=== PATIENT | male | born 1960 | race Asian ===

== ENCOUNTER 2018-03-26 05:20 | Day surgery (SDC) | payer MEDICARE ==
[~2018-03-26] VITALS: Ht 165.1 cm; Wt 67.4 kg
[2018-03-26] MEDS ORDERED: SODIUM CHLORIDE 0.9% 1,000 ML IV SCH (06:02)
[2018-03-26 06:06] VITALS: BP 178/92
[2018-03-26 06:07] VITALS: BP 178/92
[2018-03-26] MEDS ORDERED: CINA30TA2 PO (06:36)
[2018-03-26] MEDS ORDERED: SEVE800T8 PO (06:36)
[2018-03-26] MEDS ORDERED: CALC0.25 PO (06:36)
[2018-03-26] MEDS ORDERED: VITAMIN D PO (06:36)
[2018-03-26] MEDS ORDERED: CHOL100015 PO (06:36)
[2018-03-26] MEDS ORDERED: CARV3.122 PO (06:37)
[2018-03-26] MEDS ORDERED: AMLO-150 PO (06:37)
[2018-03-26 06:43] LABS: INTERNATIONAL NORMALIZED RATIO 0.95 (0.93-1.1); PROTHROMBIN TIME 10.1 Seconds (9.6-11.5)
[2018-03-26] MEDS ORDERED: FENTANYL PF 250 MCG/5ML ONE (06:48)
[2018-03-26] MEDS ORDERED: MIDAZOLAM 1 MG/ML, 2ML ONE (06:48)
[2018-03-26] MEDS ORDERED: PROTAMINE SULFATE 10 MG/ML, 5ML ONE (06:49)
[2018-03-26] MEDS ORDERED: BUPIVACAINE/PF-EPI 0.5% 1:200K ONE (06:49)
[2018-03-26] MEDS ORDERED: HEPARIN 1,000 UNITS/ML, 10ML ONE (06:49)
[2018-03-26] MEDS ORDERED: THROMBIN 5,000 UNIT VIAL TP ONE (06:49)
[2018-03-26] MEDS ORDERED: PROPOFOL 10 MG/ML, 20ML ONE (06:50)
[2018-03-26] MEDS ORDERED: CEFAZOLIN 1,000 MG ONE ×2 (06:51)
[2018-03-26] MEDS ORDERED: SODIUM CHLORIDE 0.9% PF 10ML ONE (06:51)
[2018-03-26] MEDS ORDERED: HYDROmorphone 2 MG/ML, 1ML IVPush PRN (07:30)
[2018-03-26] MEDS ORDERED: ONDANSETRON ODT 8 MG PO PRN (07:30)
[2018-03-26] MEDS ORDERED: PROMETHAZINE 12.5 MG SUPP PR PRN (07:30)
[2018-03-26] MEDS ORDERED: PROMETHAZINE 25 MG SUPP PR PRN (07:30)
[2018-03-26] MEDS ORDERED: OXYcodone 5 MG/5 ML ORAL.SOL UDC PO PRN (07:30)
[2018-03-26] MEDS ORDERED: MEPERIDINE/PF 25MG/0.5ML IVPush PRN (07:30)
[2018-03-26] MEDS ORDERED: ONDANSETRON 2MG/ML, 2ML IV PRN (07:30)
[2018-03-26] MEDS ORDERED: MORPHINE SULFATE 4 MG/ML, 1ML IVPush PRN (07:30)
[2018-03-26] MEDS ORDERED: LABETALOL 5MG/ML, 20ML IV PRN (07:30)
[2018-03-26] MEDS ORDERED: hydrALAzine 20 MG/ML, 1ML IV PRN (07:30)
[2018-03-26] MEDS ORDERED: PROMETHAZINE 25 MG/ML, 1ML IM PRN ×2 (07:30)
[2018-03-26] MEDS ORDERED: PROMETHAZINE 25 MG/ML, 1ML IV PRN (07:30)
[2018-03-26] MEDS ORDERED: FENTANYL PF 100 MCG/2ML ONE (08:45)
[2018-03-26] MEDS ORDERED: hydrALAzine 20 MG/ML, 1ML ONE (08:46)
[2018-03-26] MEDS ORDERED: OXYcodone 5 MG/5 ML ORAL.SOL UDC ONE (08:46)
[2018-03-26] MEDS: FENTANYL PF 100 MCG/2ML IV PRN ×2 (08:50→08:55)
== END 2018-03-26 10:30 | disposition home or self-care (01) ==
LOC: OUT 05:20
PROVIDERS: ATTEND Surgery Vascular Surgery
DX: I12.0 Hypertensive chronic kidney disease with stage 5 chronic kidney disease or end stage renal disease (principal); N18.6 End stage renal disease
CPT/HCPCS: 36415; 36821; 80047; 85610; 85730; 93005; J0360; J0690; J1644; J2250; J2704; J3010; J7030; J2720